=== PATIENT | male | born 1970 | race Caucasian/White ===

== ENCOUNTER 2016-07-28 17:43 | Emergency (ER) | payer BC | END 2016-07-28 21:42 | disposition left against medical advice (07) | LOC: D.ER 17:43 | DX: H57.12 Ocular pain, left eye (principal) ==

== ENCOUNTER 2018-01-01 09:47 | Emergency (ER) | payer OTHER ==
[~2018-01-01] VITALS: Ht 180.3 cm; Wt 79.5 kg
[2018-01-01 10:02] VITALS: Ht 180.3 cm; Wt 79.5 kg
[2018-01-01] MEDS ORDERED: RESTORIL15 MG PO (10:04)
[2018-01-01] MEDS ORDERED: HYDROCODONE-APA1 TAB PO (10:04)
[2018-01-01] MEDS ORDERED: CYCLOBENZAPRINE10 MG PO (10:04)
[2018-01-01] MEDS ORDERED: IBUPROFEN800 MG PO (10:05)
[2018-01-01] MEDS ORDERED: ZPAK PO (10:51)
[2018-01-01] MEDS ORDERED: AMOXICILLIN500 M1 PO (10:51)
[2018-01-01 10:57] VITALS: BP 142/99
== END 2018-01-01 11:44 | disposition home or self-care (01) ==
LOC: D.ER 09:47
DX: J06.9 Acute upper respiratory infection, unspecified (principal); J02.9 Acute pharyngitis, unspecified; I10 Essential (primary) hypertension; F17.200 Nicotine dependence, unspecified, uncomplicated